=== PATIENT | female | born 1955 | race Caucasian/White ===

== ENCOUNTER 2022-10-19 20:57 | Emergency (ER) | payer BC, MEDICARE ==
[2022-10-19] MEDS ORDERED: Sodium Chloride 0.9% 1,000 ML IV ONE (21:00)
[2022-10-19] MEDS ORDERED: Sodium Chloride 0.9% 10 ML Syringe FLUSH PRN (21:00)
[2022-10-19] MEDS ORDERED: EPINEPHrine 1:10,000 1 MG/10 ML Syringe IVPUSH ONE ×4 (21:04→21:50)
[2022-10-19 21:31] LABS: ESTIMATED GFR 17 mL/min (>60)
[2022-10-19] MEDS ORDERED: Sodium Bicarbonate 8.4% 50 MEQ/50 ML Syringe IVPUSH ONE (21:32)
[2022-10-19] MEDS ORDERED: 50% Dextrose in Water 50 ML Syringe IVPUSH ONE (21:34)
[2022-10-19] MEDS ORDERED: Calcium Chloride 10% 1 GM/10 ML Syringe IVPUSH ONE (21:37)
[2022-10-19] MEDS ORDERED: Norepinephrine Bit/D5W Premix 250 ML ONE (21:40)
[2022-10-19] MEDS ORDERED: Norepinephrine Bit/D5W Premix 4 MG in Premix Bag 1 BAG IV SCH (21:44)
[2022-10-19 21:59] LABS: CORONAVIRUS COVID-19 NAA NEGATIVE (NEGATIVE)
== END 2022-10-19 22:04 | disposition expired ==
LOC: FB.ED 20:57
DX: I46.9 Cardiac arrest, cause unspecified (principal); J96.00 Acute respiratory failure, unspecified whether with hypoxia or hypercapnia; B97.4 Respiratory syncytial virus as the cause of diseases classified elsewhere; I10 Essential (primary) hypertension; I48.91 Unspecified atrial fibrillation; Z20.822 Contact with and (suspected) exposure to COVID-19
CPT/HCPCS: 0241U; 31500; 36415; 71045; 80053; 83735; 83880; 84484; 85025; 85610; 86140; 92950; 96361; 96365; 96375; 96376; 99285-25; J0171; J3490; J7030